=== PATIENT | female | born 1965 | race Caucasian/White ===

== ENCOUNTER 2016-05-22 05:52 | Emergency (ER) | payer MEDICAID ==
[~2016-05-22] VITALS: Ht 167.6 cm; Wt 114.0 kg
[2016-05-22 06:00] VITALS: BP 122/83; PULSE 85; RESP 18; TEMP 98; O2SAT 98
[2016-05-22] MEDS ORDERED: CARD240C6 PO (06:20)
[2016-05-22] MEDS ORDERED: AZIT250T3 PO (06:24)
[2016-05-22] MEDS ORDERED: BENZ100 PO (06:24)
[2016-05-22] MEDS ORDERED: PRED50 PO (06:24)
--- NOTE | 2016-05-22 06:25 | PD ---
HPI Chief Complaint: Cold / Flu Symptoms Time Seen by Provider: 06:10 Travel History International Travel<30 days: No Contact w/Intl Traveler<30days: No Traveled to known affect area: No History of Present Illness HPI 50 yo F arrives c/o cough for at least 4-6 weeks or so. The patient notes fairly consistent rhinorrhea. The cough can be worse at night. She denies fever. She suffers with similar cough now and then. Steroids and inhalers have been effective in the past as have antibiotics. She has no chest pain. There is no shortness of breath at rest or with exertion. She does not smoke. [facility] Past Medical History ?: Not Social History Alcohol Use: Yes (SOCIAL) Tobacco Use: No Substance Use: No Allergies-Medications (Allergen,Severity, Reaction): Coded Allergies: No Known Allergies (Unverified , 05/22/16) Reported Meds & Prescriptions Reported Meds & Active Scripts Active Azithromycin 250 Mg Tab 250 Mg PO DIRECTED Take 2 tabs (500 mg) on day 1 then 1 tab daily x 4 days. Tessalon Perles (Benzonatate) 100 Mg Cap 200 Mg PO TID PRN Prednisone 50 Mg Tab 50 Mg PO DAILY Reported Cardizem CD 24 HR (Diltiazem CD 24 HR) 240 Mg Caper 240 Mg PO DAILY Review of Systems Except as stated in HPI: all other systems reviewed are Neg Physical Exam Narrative GENERAL: 50-year-old female pleasant well-nourished well-developed proliferative cough SKIN: Warm and dry. HEAD: Atraumatic. Normocephalic. EYES: Pupils equal and round. No scleral icterus. No injection or drainage. ENT: No nasal bleeding or discharge. Mucous membranes pink and moist. NECK: Trachea midline. No JVD. CARDIOVASCULAR: Regular rate and rhythm. No murmur appreciated. RESPIRATORY: Occasional cough. No significant dyspnea. Breath sounds are somewhat coarse of expiration. GASTROINTESTINAL: Abdomen soft, non-tender, nondistended. Hepatic and splenic margins not palpable. MUSCULOSKELETAL: No obvious deformities. No clubbing. No cyanosis. No edema. NEUROLOGICAL: Awake and alert. No obvious cranial nerve deficits. Motor grossly within normal limits. Normal speech. PSYCHIATRIC: Appropriate mood and affect; insight and judgment normal. Data Data Last Documented VS Vital Signs Date Time Temp Pulse Resp B/P Pulse Ox O2 Delivery O2 Flow Rate FiO2 05/22/16 06:15 98 Room Air 05/22/16 06:00 98.0 85 18 122/83 Orders Dexamethasone Inj (Decadron Inj) (05/22/16 06:30) Albuterol Hfa Inh (Proair Hfa Inh) (05/22/16 06:30) Prednisone (Deltasone) (05/22/16 09:00) Prednisone (Deltasone) (05/22/16 06:30) MDM Medical Decision Making Medical Screen Exam Complete: Yes Emergency Medical Condition: Yes Differential Diagnosis GERD, postnasal drip, COPD, asthma Narrative Course Presentation is most in keeping with a cough secondary to postnasal drip. We' ll provide first dose of antibiotics here as well as an inhaler here. Scripts as below including prednisone, Tessalon Perles and azithromycin provided. Return precautions discussed. Diagnosis Primary Impression: Cough Additional Impression: Rhinorrhea Referrals: Primary Care Physician 2 days Additional Instructions: You have a choice when it comes to health care, and we are glad that you chose [facility]. Hopefully, we have met your expectations on today's visit. You are welcome to return to [facility] at any time, as we are committed to meeting the health care needs of our community. Med/Other Pt SpecificInfo: Prescription(s) given Scripts Ipratropium-Albuterol Inh (Combivent Respimat Inh)20-100 Assisted/Act Aero1 Puff INH QID #1 INHALER Ref 0 Prov:Derrick Garcia MD 05/22/16 Azithromycin 250 Mg [id number] Mg PO DIRECTED #6 TAB Ref 0 Take 2 tabs (500 mg) on day 1 then 1 tab daily x 4 days. Prov:Derrick Garcia MD 05/22/16 Benzonatate (Tessalon Perles)100 Mg Mtz130 Mg PO TID PRN (COUGH) #20 CAP Ref 0 Prov:Derrick Garcia MD 05/22/16 Prednisone 50 Mg Tab50 Mg PO DAILY #4 TAB Ref 0 Prov:Derrick Garcia MD 05/22/16 Disposition: 01 DISCHARGE HOME Condition: Stable Derrick Garcia MD May 22, 2016 06:25
[2016-05-22] MEDS ORDERED: IPRAAER INH (06:29)
[2016-05-22] MEDS ORDERED: predniSONE 20 MG TAB PO ONE (06:30)
[2016-05-22] MEDS ORDERED: ALBUTEROL SULFATE 90 MCG/ACT HFA 8 GM INHALER INH ONE (06:30)
[2016-05-22] MEDS ORDERED: DEXAMETHASONE SOD PHOS 20 MG/5 ML VIAL IM ONE (06:30)
[2016-05-22 06:40] VITALS: BP 120/84
[2016-05-22] MEDS ORDERED: predniSONE 20 MG TAB PO SCH (09:00)
== END 2016-05-22 06:42 | disposition home or self-care (01) ==
LOC: PHED 05:52
DX: R05 Cough (principal); J34.89 Other specified disorders of nose and nasal sinuses
CPT/HCPCS: 99283; J7512